=== PATIENT | male | born 1955 | race Caucasian/White ===

== ENCOUNTER 2018-01-11 15:58 | Inpatient (IN) | payer SELFPAY ==
[~2018-01-11 15:58] MED LIST: ISOVUE-370 76%-LOCM 1 ML ONE
[2018-01-11] MEDS ORDERED: Ondansetron ODT 4 MG TAB PO PRN (17:15)
[2018-01-11] MEDS ORDERED: Sodium Chloride 0.9% 1,000 ML IV SCH (17:15)
[2018-01-11] MEDS ORDERED: Promethazine HCl 25 MG/ML VIAL IM PRN (17:19)
[2018-01-11] MEDS ORDERED: Morphine 4 MG/ML VIAL SLOW IVP PRN (17:24)
--- NOTE | 2018-01-11 17:30 | PDOC.FPRHP ---
- History of Present Illness Chief Complaint: abdominal pain History of Present Illness: 62 yo male with no known past medical hx presents with acute abdominal pain over the past 3 days. He says that his pain is mid epigastric and aches constantly. He reports that he had intermittent abdominal pain for the last week and some nausea but no vomiting. He sabi chest pain, shortness of breath, fever, chills. ED Course: morphine 6mg, 30 tramadol, 1L NS, zofran - Allergies/Adverse Reactions Allergies Allergy/AdvReac Type Severity Reaction Status Date / Time No Known Drug Allergies Allergy Verified 01/11/18 17:30 - History PMHx: none PSHx: appendectomy FHx: none Social: endorses alcohol use of 4-5 drinks of whiskey per night; denies drug use and tobacco use - Review of Systems General: denies: fever/chills, weight/appetite/sleep changes ENT: denies: nasal congestion, rhinorrhea Respiratory: denies: cough, congestion, shortness of breath Cardiovascular: denies: chest pain, palpitation, edema Gastrointestinal: reports: nausea, abdominal pain. denies: vomiting, diarrhea, constipation Skin: denies: rashes, lesions Musculoskeletal: denies: pain, tenderness Psychological: denies: anxiety, depression - Vital signs BP: [] HR: [] RR: [] Tmax: [] Pox: []% on [] Wt: [] - Physical Exam Constitutional: NAD, awake, alert and oriented HEENT: normocephalic and atraumatic, PERRLA, EOMI, conjunctiva clear, no scleral icterus, grossly normal vision, grossly normal hearing, normal nasal mucosa Neck: supple, trachea midline, no LAD, no JVD, no thyromegaly Heart: RRR, normal S1/S2, no murmurs/rubs/gallops, no edema Lungs: CTAB, no respiratory distress, good air movement, no wheezing Abdomen: soft, other (tender to palpation midepigastric region) Musculoskeletal: normal structure, normal tone Neurological: no focal deficit, CN II-XII intact Skin: no rash/lesions, good turgor, capillary refill <2 seconds Heme/Lymphatic: no unusual bruising or bleeding, no purpura, no petechia Psychiatric: normal mood and affect, good judgment and insight FMR H&P: Results - EKG Interpretation EKG: LBBB FMR H&P: A/P - Problem List (1) Alcohol-induced pancreatitis Current Visit: Yes Status: Acute Code(s): K85.20 - ALCOHOL INDUCED ACUTE PANCREATITIS WITHOUT NECROSIS OR INFCT (2) Elevated troponin Current Visit: Yes Status: Acute Code(s): R74.8 - ABNORMAL LEVELS OF OTHER SERUM ENZYMES - Plan 62 yo male with no pmhx presents with abdominal pain and an elevated lipase from [place], admitted for acute pancreatitis. 1.)Acute Pancreatitis-Suspect alcohol induced. Pt was made NPO, provided with morphine IV for pain control, and started on IV NS @ 125ml.hr; pt can have sips of water. We will recheck a cmp and cbc in the am as well as a fasting lipid panel. 2.)Elevated troponin-no complaints of chest pain. Pt does have a new left bundle branch block. We will trend his troponins. 3.)Chronic alcohol abuse- We will place him on the ase protocol and provide ativan 1mg prn. DVT prophylaxis: lovenox FMR H&P: Upper Level - Pertinent history 62 yo M here for abd pain worsening over the last 24 hours. States he drinks whiskey daily, most recently last night. Denies any N/V/D. States abd pain is periumbilical, nonradiating in nature. Has not seen a doctor for multiple years prior to this. - Pertinent findings Gen: WA, in NAD HEENT: MMM, EOMI, PERRL CV: RRR, no m/r/g Pulm: CTAB, no crackles Abd: TTP periumbilically, nonTTP in epigastric area, no masses, +BS Ext: no edema Neuro: CN 2-12 intact, normal sensation Psych: appropriate - Plan Date/Time: 01/11/18 1726 62 yo M p/w abd pain 1) Acute pancreatitis: Suspect 2/2 to EtOH use. Keep NPO, gradually refeed beginning tomorrow or the next day depending on symptom resolution. Morphine, zofran prn. IVFs at 125/hr. Checking FLP in AM, trend lipase. 2) New LBBB: noted incidentally on EKG, asymptomatic at this time, likely chronic in nature I, [Enrique Mohan], have evaluated this patient and agree with findings/plan as outlined by senior insight manager international resident. Pertinent changes/additions are listed here.
[2018-01-11 18:13] LABS: Cardiac Risk 3.1 (Less than 4.5)
[2018-01-11 18:17] LABS: Troponin I 0.015 ng/mL (< 0.028)
[2018-01-11] MEDS ORDERED: Morphine 2 MG/ML SYRINGE SLOW IVP PRN (19:45)
[2018-01-11] MEDS: Sodium Chloride 0.9% 1,000 ML IV SCH (20:01)
[2018-01-11] MEDS: Thiamine HCl 200 MG/2 ML VIAL SLOW IVP SCH (20:05)
[2018-01-11 22:39] VITALS: BMI 23.7
--- NOTE | 2018-01-11 22:56 | CT ---
CT ABDOMEN AND PELVIS WITH IV CONTRAST: Indication: Concern for pancreatitis. FINDINGS: There is subsegmental atelectasis involving both lower lobes. There is fatty infiltration of the live r. There is a 1.5 cm cyst within the left hepatic lobe. There is very subtle peripancreatic inflammat ory stranding suspicious for pancreatis. There is no evidence for pancreatic necrosis or pseudocyst. Adrenal glands and kidneys appear within normal limits. The spleen appears within normal limits. The appendix is not definitely seen. There is scattered degenerative and osteoarthritic change. IMPRESSION: 1. Findings most consistent with noncomplicated pancreatitis. 2. Fatty liver. 3. Left hepatic lobe cyst. POS: [facility]
[2018-01-11 23:28] LABS: Troponin I 0.028 ng/mL (< 0.028)
[2018-01-12] MEDS: Sodium Chloride 0.9% 1,000 ML IV SCH ×6 (01:00→20:27)
[2018-01-12 05:28] LABS: #Eosinphils 0.2 thou/uL (0.0-0.7); #Lymphocytes 1.4 thou/uL (1.20-3.40); #Monocytes 0.9 thou/uL (0.11-0.59); #Neutrophils 4.6 thou/uL (1.40-6.50); %Basophils 0.7 % (0.0-1.0); %Eosinophils 2.2 % (0.0-10.0); %Lymphocytes 19.4 % (21.0-51.0); %Monocytes 12.7 % (0.0-10.0); Hemoglobin 13.7 g/dL (14.0-18.0); MDiff Complete? YES; Macrocytosis SLIGHT = 6-15 cells (100X) (0-5/hpf); Mean Corpuscular HGB CONC 34.4 g/dL (32.0-36.0); Mean Corpuscular Hemoglobin 36.3 pg (27.0-31.0); PLT Morphology Comment Appears Decreased; Platelet Count 66 thou/uL (130-400); RBC Distribution Width 12.4 % (11.5-14.5); Red Blood Cell (RBC) Count 3.77 mill/uL (4.70-6.10)
[2018-01-12 05:33] LABS: ALT (SGPT) 16 U/L (8-55); AST (SGOT) 33 U/L (5-34); Albumin 2.4 g/dL (3.4-4.8); Alkaline Phosphatase 101 U/L (40-150); Anion Gap 8 mmol/L (10-20); BUN (Urea Nitrogen) 7 mg/dL (8.4-25.7); Bilirubin, Total 2.5 mg/dL (0.2-1.2); Calc. Creatinine Clearance 130 mL/min (70-130); Calcium 7.4 mg/dL (7.8-10.44); Carbon Dioxide 23 mmol/L (23-31); Chloride 105 mmol/L (98-107); Estimated GFR-MDRD Greater than 90; Globulin 3.2 g/dL (2.4-3.5); Glucose 92 mg/dL (80-115); Potassium 3.4 mmol/L (3.5-5.1); Protein, Total 5.6 g/dL (5.8-8.1); Sodium 133 mmol/L (136-145)
[2018-01-12] MEDS ORDERED: Potassium Chloride 40 MEQ in Premix Bag 1 BAG IVPB SCH (06:45)
[2018-01-12] MEDS ORDERED: Potassium Chloride 40 MEQ, Admixture Fee 1 EACH in Sodium Chloride 0.9% 250 ML 250 ML IVPB SCH (06:45)
[2018-01-12] MEDS: Folic Acid 1 MG TAB PO SCH (07:52)
[2018-01-12 08:54] LABS: Folate (Folic Acid) 2.1 ng/mL (7.0-31.4)
[2018-01-12] MEDS ORDERED: Enoxaparin Sodium 40 MG/0.4 ML SYRINGE SC SCH (09:00)
--- NOTE | 2018-01-12 11:33 | PDOC.FM ---
- Subjective Subjective: No acute events overnight. Pt reports his pain has been approx a 1 overnight and states he has not required morphine since last night. He denies nvdc, cp, sob. He does have some positional abd pain and persistent ttp in epigastric area. - Objective Vital Signs & Weight: Vital Signs (12 hours) Temp Pulse Resp BP BP Pulse Ox 01/12/18 08:00 99.0 F 68 20 132/68 132/68 97 01/12/18 03:50 98.6 F 66 18 113/66 113/66 97 01/11/18 23:32 98.8 F 63 18 129/62 129/62 98 Weight Weight 83.9 kg I&O: 01/11/18 01/12/18 01/13/18 06:59 06:59 06:59 Intake Total 2625 Output Total 950 Balance 1675 Result Diagrams: 01/12/18 04:16 01/12/18 04:16 <Julio Rider - Last Filed: 01/12/18 11:34> - Objective Vital Signs & Weight: Vital Signs (12 hours) Temp Pulse Resp BP BP Pulse Ox 01/12/18 08:00 99.0 F 68 20 132/68 132/68 97 01/12/18 03:50 98.6 F 66 18 113/66 113/66 97 Weight Weight 83.9 kg I&O: 01/11/18 01/12/18 01/13/18 06:59 06:59 06:59 Intake Total 2625 Output Total 950 Balance 1675 Result Diagrams: 01/12/18 04:16 01/12/18 04:16 <Emanuel Hinkle - Last Filed: 01/12/18 11:59> Phys Exam - Physical Examination Constitutional: NAD HEENT: PERRLA, sclera anicteric Neck: no nodes, no JVD Respiratory: no wheezing, no rales, no rhonchi, clear to auscultation bilateral Cardiovascular: RRR, no significant murmur, no rub Gastrointestinal: soft, no distention, positive bowel sounds guarding epigastric, w/o rebound. Musculoskeletal: no edema, pulses present Neurological: non-focal, moves all 4 limbs Skin: no rash -: No cullens or anne barrera sign <Julio Rider - Last Filed: 01/12/18 11:34> Dx/Plan (1) Alcohol-induced pancreatitis Code(s): K85.20 - ALCOHOL INDUCED ACUTE PANCREATITIS WITHOUT NECROSIS OR INFCT Status: Acute (2) Alcohol abuse Code(s): F10.10 - ALCOHOL ABUSE, UNCOMPLICATED Status: Acute (3) Elevated troponin Code(s): R74.8 - ABNORMAL LEVELS OF OTHER SERUM ENZYMES Status: Acute (4) Hyponatremia Code(s): E87.1 - HYPO-OSMOLALITY AND HYPONATREMIA Status: Acute (5) Hypokalemia Code(s): E87.6 - HYPOKALEMIA Status: Acute - Plan Plan: 1.)Acute Pancreatitis-Suspect alcohol induced. Pt was made NPO, provided with morphine IV for pain control, last dose of morphine was 8pm last night and pt states his pain is well controlled. He will be advanced to clear liquid diet for lunch and remainder of the day. We will advance diet as tolerated tomorrow, assuming he tolerates clears well. Cont morphine for pain control. Back of diet and return to NPO if worsening of symptoms with clears. Cont IVF. 2.)Elevated troponin-no complaints of chest pain. Troponins have remained less than indeterminate X3. Remains asymptomatic. No need to continue to trend unless acute change in symptoms. 3.)Chronic alcohol abuse- ASE protocol. Last drink approx 36 hours ago. Cont to monitor for s/s of withdrawal 4) Hyponatremia: Mild. Gentle IVF, repeat am CMP. Trend. 5) Hypokalemia: replace prn. AM CMP. <Julio Rider - Last Filed: 01/12/18 11:34> Attending Addendum - Attending Addendum Date/Time: 01/12/18 2286 I personally evaluated the patient and discussed the management with Dr. Rider. I agree with the History, Examination, Assessment and Plan documented above with any addition or exceptions noted below. Patient denies having significant pain and has been several hours without narcotic pain relief. Will give CLD for lunch and see how he tolerates it. Continue IV fluids. Slow escalation of diet. Likely related to alcohol ingestion as labs do not suggest other cause at current time. BISAP score 1, low mortality risk. <Emanuel Hinkle - Last Filed: 01/12/18 11:59>
[2018-01-12] MEDS: Thiamine HCl 200 MG/2 ML VIAL SLOW IVP SCH (20:28)
[2018-01-13] MEDS: Sodium Chloride 0.9% 1,000 ML IV SCH ×3 (04:59→19:48)
[2018-01-13 05:47] LABS: #Eosinphils 0.3 thou/uL (0.0-0.7); #Lymphocytes 1.2 thou/uL (1.20-3.40); #Monocytes 0.7 thou/uL (0.11-0.59); %Basophils 0.9 % (0.0-1.0); %Lymphocytes 22.8 % (21.0-51.0); %Monocytes 13.4 % (0.0-10.0); %Neutrophils 56.9 % (42.0-75.0); Hemoglobin 12.8 g/dL (14.0-18.0); Mean Corpuscular HGB CONC 33.8 g/dL (32.0-36.0); Mean Corpuscular Hemoglobin 36.6 pg (27.0-31.0); Mean Platelet Volume 7.7 fL (7.4-10.4); Platelet Count 56 thou/uL (130-400); RBC Distribution Width 12.2 % (11.5-14.5); Red Blood Cell (RBC) Count 3.48 mill/uL (4.70-6.10); White Blood Cell (WBC) Count 5.3 thou/uL (4.8-10.8)
[2018-01-13 06:13] LABS: ALT (SGPT) 12 U/L (8-55); AST (SGOT) 36 U/L (5-34); Albumin 2.3 g/dL (3.4-4.8); Alkaline Phosphatase 100 U/L (40-150); Anion Gap 12 mmol/L (10-20); BUN (Urea Nitrogen) 7 mg/dL (8.4-25.7); Bilirubin, Total 2.8 mg/dL (0.2-1.2); Calc. Creatinine Clearance 142 mL/min (70-130); Calcium 7.5 mg/dL (7.8-10.44); Carbon Dioxide 20 mmol/L (23-31); Chloride 106 mmol/L (98-107); Estimated GFR-MDRD Greater than 90; Globulin 3.1 g/dL (2.4-3.5); Glucose 61 mg/dL (80-115); Potassium 3.6 mmol/L (3.5-5.1); Protein, Total 5.4 g/dL (5.8-8.1); Sodium 134 mmol/L (136-145)
--- NOTE | 2018-01-13 08:44 | PDOC.FM ---
- Subjective Subjective: No acute events overnight. Pt has not required pain medications since 01/11. He tolerated clear liquids w/o NVDC. He does report occasional RLQ pain he rates a 2/10 when it is present. Denies tactile, visual and auditory hallucinations. Denies agitation, restlessness and tremulousness. - Objective Vital Signs & Weight: Vital Signs (12 hours) Temp Pulse Resp BP BP Pulse Ox 01/13/18 08:00 98.6 F 72 16 138/75 95 01/13/18 04:00 98.2 F 77 18 142/61 H 142/61 H 97 01/13/18 00:00 99.7 F H 74 18 125/70 125/70 97 Weight Weight 83.9 kg I&O: 01/12/18 01/13/18 01/14/18 06:59 06:59 06:59 Intake Total 2625 4340 Output Total 950 2850 Balance 1675 1490 Result Diagrams: 01/13/18 03:48 01/13/18 03:48 <Julio Rider - Last Filed: 01/13/18 08:42> - Objective Vital Signs & Weight: Vital Signs (12 hours) Temp Pulse Resp BP BP Pulse Ox 01/13/18 08:00 98.6 F 72 16 130/83 138/75 95 01/13/18 04:00 98.2 F 77 18 142/61 H 142/61 H 97 01/13/18 00:00 99.7 F H 74 18 125/70 125/70 97 Weight Weight 83.9 kg I&O: 01/12/18 01/13/18 01/14/18 06:59 06:59 06:59 Intake Total 2625 4340 Output Total 950 2850 Balance 1675 1490 Result Diagrams: 01/13/18 03:48 01/13/18 03:48 <Emanuel Hinkle - Last Filed: 01/13/18 10:55> Phys Exam - Physical Examination Constitutional: NAD HEENT: PERRLA, moist MMs Neck: no nodes, no JVD Respiratory: no wheezing, no rales, no rhonchi, clear to auscultation bilateral Cardiovascular: RRR, no significant murmur, no rub Gastrointestinal: soft, no distention, positive bowel sounds RUQ ttp No rebound or guarding. No epigastric pain. Musculoskeletal: no edema, pulses present Neurological: non-focal, moves all 4 limbs Skin: no rash, cap refill <2 seconds <Julio Rider - Last Filed: 01/13/18 08:42> Dx/Plan (1) Alcohol-induced pancreatitis Code(s): K85.20 - ALCOHOL INDUCED ACUTE PANCREATITIS WITHOUT NECROSIS OR INFCT Status: Acute (2) Alcohol abuse Code(s): F10.10 - ALCOHOL ABUSE, UNCOMPLICATED Status: Acute (3) Hyponatremia Code(s): E87.1 - HYPO-OSMOLALITY AND HYPONATREMIA Status: Acute (4) Hypokalemia Code(s): E87.6 - HYPOKALEMIA Status: Resolved (5) Thrombocytopenia Code(s): D69.6 - THROMBOCYTOPENIA, UNSPECIFIED Status: Acute - Plan Plan: 1.)Acute Pancreatitis-Suspect alcohol induced. Pt was made NPO, provided with morphine IV for pain control, last dose of morphine was 8pm 01/11 and pt states his pain is well controlled. He has tolerated clear liquids. We will keep clear liquid diet for breakfast and advance to fulls for lunch. ADAT if pt tolerates full liquids. 2.)Chronic alcohol abuse- ASE protocol. Last drink approx 60 hours ago. Cont to monitor for s/s of withdrawal. Currently denies tactile, visual and auditory hallucinations in addition to agitation and tremulousness. 3.) Hyponatremia: Mild. Gentle IVF. 4.) Hypokalemia: resolved. 5.) Thrombocytopenia: -low on admission but has decreased -hold lovenox for now -possibly 2/2 underlying liver disease -trend, repeat am cbc <Julio Rider - Last Filed: 01/13/18 08:42> Attending Addendum - Attending Addendum Date/Time: 01/13/18 1053 I personally evaluated the patient and discussed the management with Dr. Rider. I agree with the History, Examination, Assessment and Plan documented above with any addition or exceptions noted below. Patient reports no issues with clear lliquid diet yesterday. No pain and has not required narcotic pain relief in >24 hours. He will be advanced to full liquids this morning and advance as tolerated if he tolerates well. D/C narcotic meds. Patient with thrombocytopenia of unknown etiology. Could be nutritional or related to sequestration from underlying liver disease. Will get U/S to evaluate liver architecture as CT showed fatty liver infiltration. Anticipate discharge tomorrow if he continues to improve as quickly as he is. <Emanuel Hinkle R - Last Filed: 01/13/18 10:55>
[2018-01-13] MEDS: Folic Acid 1 MG TAB PO SCH (09:02)
--- NOTE | 2018-01-13 14:47 | ULT ---
RIGHT UPPER QUADRANT ULTRASOUND: Comparison: None. History: Right upper quadrant tenderness. Technique: Multiplanar grayscale and color doppler images were obtained in a right upper quadrant ult rasound. FINDINGS: The liver demonstrates increased echogenicity consistent with fatty infiltration. There is an anechoi c cyst in the left lobe of the liver measuring 1.5 cm in greatest dimension. No intrahepatic biliary dilatation is seen. The gallbladder is normal without stones, sludge, gallbladder wall thickening, or pericholecystic flu id. The common bile duct is normal measuring 4 mm. The pancreas cannot be visualized. The right kidney is normal in echogenicity without hydronephrosis or calculus and measures 10.1 cm in length. IMPRESSION: 1. Fatty liver. 2. Left hepatic cyst. POS: [facility]
[2018-01-13] MEDS: Famotidine 40 MG/4 ML VIAL SLOW IVP SCH (19:45)
[2018-01-13] MEDS: Thiamine HCl 200 MG/2 ML VIAL SLOW IVP SCH (19:45)
[2018-01-14] MEDS: Sodium Chloride 0.9% 1,000 ML IV SCH (03:35)
[2018-01-14 04:58] LABS: #Eosinphils 0.4 thou/uL (0.0-0.7); #Lymphocytes 1.1 thou/uL (1.20-3.40); #Monocytes 0.7 thou/uL (0.11-0.59); #Neutrophils 2.7 thou/uL (1.40-6.50); %Basophils 0.6 % (0.0-1.0); %Eosinophils 7.6 % (0.0-10.0); %Lymphocytes 22.8 % (21.0-51.0); %Monocytes 14.3 % (0.0-10.0); %Neutrophils 54.7 % (42.0-75.0); Hemoglobin 12.5 g/dL (14.0-18.0); Mean Corpuscular HGB CONC 33.7 g/dL (32.0-36.0); Mean Corpuscular Hemoglobin 35.8 pg (27.0-31.0); Mean Platelet Volume 7.8 fL (7.4-10.4); Platelet Count 66 thou/uL (130-400); RBC Distribution Width 12.2 % (11.5-14.5)
[2018-01-14 05:08] LABS: ALT (SGPT) 14 U/L (8-55); AST (SGOT) 41 U/L (5-34); Albumin 2.3 g/dL (3.4-4.8); Alkaline Phosphatase 101 U/L (40-150); Anion Gap 8 mmol/L (10-20); BUN (Urea Nitrogen) 8 mg/dL (8.4-25.7); Bilirubin, Total 1.9 mg/dL (0.2-1.2); Calc. Creatinine Clearance 130 mL/min (70-130); Calcium 7.9 mg/dL (7.8-10.44); Carbon Dioxide 25 mmol/L (23-31); Chloride 107 mmol/L (98-107); Estimated GFR-MDRD Greater than 90; Globulin 3.3 g/dL (2.4-3.5); Glucose 106 mg/dL (80-115); Potassium 4.2 mmol/L (3.5-5.1); Protein, Total 5.6 g/dL (5.8-8.1); Sodium 136 mmol/L (136-145)
[2018-01-14] MEDS: Folic Acid 1 MG TAB PO SCH (08:12)
--- NOTE | 2018-01-14 09:15 | PDOC.FM ---
- Subjective Subjective: No acute events overnight. Pt reports he was able to tolerate full diet yesterday without pain, nvdc. Denies cp, sob. - Objective Vital Signs & Weight: Vital Signs (12 hours) Temp Pulse Resp BP Pulse Ox 01/14/18 07:50 98.6 F 62 16 127/77 96 Weight Weight 83.9 kg I&O: 01/13/18 01/14/18 01/15/18 06:59 06:59 06:59 Intake Total 4340 360 Output Total 2850 Balance 1490 360 Result Diagrams: 01/14/18 04:11 01/14/18 04:11 <Julio Rider - Last Filed: 01/14/18 09:13> - Objective Vital Signs & Weight: Vital Signs (12 hours) Temp Pulse Resp BP Pulse Ox 01/14/18 11:24 98.5 F 71 18 142/62 H 94 L 01/14/18 08:00 98.6 F 62 16 96 01/14/18 07:50 98.6 F 62 16 127/77 96 Weight Weight 83.9 kg I&O: 01/13/18 01/14/18 01/15/18 06:59 06:59 06:59 Intake Total 4340 360 Output Total 2850 Balance 1490 360 Result Diagrams: 01/14/18 04:11 01/14/18 04:11 <Emanuel Hinkle - Last Filed: 01/14/18 11:30> Phys Exam - Physical Examination Constitutional: NAD HEENT: PERRLA, sclera anicteric Neck: no JVD Respiratory: no wheezing, no rales, no rhonchi, clear to auscultation bilateral Cardiovascular: RRR, no significant murmur, no rub Gastrointestinal: soft, non-tender, no distention, positive bowel sounds Musculoskeletal: no edema, pulses present Neurological: non-focal, moves all 4 limbs Skin: no rash, normal turgor <Julio Rider - Last Filed: 01/14/18 09:13> Dx/Plan (1) Alcohol-induced pancreatitis Code(s): K85.20 - ALCOHOL INDUCED ACUTE PANCREATITIS WITHOUT NECROSIS OR INFCT Status: Acute (2) Alcohol abuse Code(s): F10.10 - ALCOHOL ABUSE, UNCOMPLICATED Status: Acute (3) Hyponatremia Code(s): E87.1 - HYPO-OSMOLALITY AND HYPONATREMIA Status: Acute (4) Thrombocytopenia Code(s): D69.6 - THROMBOCYTOPENIA, UNSPECIFIED Status: Acute - Plan Plan: 1.)Acute Pancreatitis-Suspect alcohol induced. Pt has tolerated his diet and continues to be pain free. He is stable for dc to home today with OP f/u recommended. 2.)Chronic alcohol abuse- ASE protocol. No tremulousness, hallucinations. RUQ US showed fatty liver. Coundeled on cessation and pt motivated to quit drinking. Warned on the consequences of continued alcohol consumption. 3.) Hyponatremia: Resolved. 4.) Hypokalemia: resolved. 5.) Thrombocytopenia: -Platelets stable. -Possible decreased production from chronic alcohol abuse vs destruction 2/2 alcoholic steatohepatitis. -stable for DC. F/U OP <Julio Rider - Last Filed: 01/14/18 09:13> Attending Addendum - Attending Addendum Date/Time: 01/14/18 2363 I personally evaluated the patient and discussed the management with Dr. Rider. I agree with the History, Examination, Assessment and Plan documented above with any addition or exceptions noted below. Patient tolerating soft diet well and has no pain. Labs ok. He is stable for discharge today. U/S shows fatty liver but no evidence of cirrhosis. Would encourage outpatient follow up and workup of thrombocytopenia. Counselled on abstinence from alcohol. <Emanuel Hinkle - Last Filed: 01/14/18 11:30>
[2018-01-14] MEDS: Famotidine 40 MG/4 ML VIAL SLOW IVP SCH (10:17)
[2018-01-14 11:27] VITALS: BP 142/62; TEMP 98.5
--- NOTE | 2018-01-16 08:27 | ADD-HP ---
ADDENDUM I have seen and evaluated this patient and discussed his care with Dr. Lesvia Hall and agree with e assessment and plan. The patient was seen and evaluated on 01/11/2018 after admission.
== END 2018-01-14 13:45 | disposition home or self-care (01) | DRG 439 ==
LOC: ERS 15:58 → T4-A 16:48
PROVIDERS: ADMIT Family Medicine; ATTEND Family Medicine
DX: K85.20 Alcohol induced acute pancreatitis without necrosis or infection (principal); E87.1 Hypo-osmolality and hyponatremia; F10.10 Alcohol abuse, uncomplicated; I44.7 Left bundle-branch block, unspecified; E87.6 Hypokalemia
CPT/HCPCS: 36415; 74160; 76705; 80053; 80061; 82607; 82746; 85025; 99285; A4216; J1650; J2270; J3411; J3480; J7050; Q0162